=== PATIENT | male | born 1950 | race Caucasian/White ===

== ENCOUNTER 2016-08-05 18:05 | Observation (INO) | payer MEDICARE, OTHER ==
[2016-08-05 20:10] LABS: ABSOLUTE EOSINOPHILS # (AUTO) 0.4 10^3/uL (0.0-0.6); ABSOLUTE LYMPHOCYTES (AUTO) 1.8 10^3/uL (0.5-4.7); ABSOLUTE MONOCYTES (AUTO) 0.6 10^3/uL (0.1-1.4); ABSOLUTE NEUT (AUTO) 4.4 10^3/uL (1.7-8.2); BASOPHILS % (AUTO) 0.6 % (0-2); EOSINOPHILS % (AUTO) 5.6 % (0-6); HEMOGLOBIN 11.9 g/dL (13.5-17.0); HGB HCT DIFFERENCE 0.7; LYMPHOCYTES % (AUTO) 25.4 % (13-45); MEAN CORPUSCULAR HEMOGLOBIN 30.5 pg (27.0-33.4); MEAN CORPUSCULAR HGB CONC 34.1 g/dL (32.0-36.0); MEAN CORPUSCULAR VOLUME 89 fl (80-97); MONOCYTES % (AUTO) 7.6 % (3-13); RED BLOOD COUNT 3.92 10^6/uL (4.35-5.55); RED CELL DISTRIBUTION WIDTH 13.9 % (11.5-14.0); SEGMENTED NEUTROPHILS % (AUTO) 60.8 % (42-78); WHITE BLOOD COUNT 7.3 10^3/uL (4.0-10.5)
[2016-08-05 20:19] LABS: ALANINE AMINOTRANSFERASE 39 U/L (21-72); ALBUMIN 3.9 g/dL (3.5-5.0); ALKALINE PHOSPHATASE 102 U/L (38-126); ANION GAP 10 (5-19); ASPARTATE AMINO TRANSFERASE 19 U/L (17-59); BILIRUBIN,TOTAL 0.5 mg/dL (0.2-1.3); BLOOD UREA NITROGEN 22 mg/dL (7-20); CALCIUM 9.2 mg/dL (8.4-10.2); CARBON DIOXIDE 29 mmol/L (22-30); CHLORIDE 97 mmol/L (98-107); CREATINE KINASE < 20 U/L (55-170); CREATININE RESULT 0.84 mg/dL (0.52-1.25); GLUCOSE 149 mg/dL (75-110); POTASSIUM 4.5 mmol/L (3.6-5.0); SODIUM 136.2 mmol/L (137-145); TOTAL PROTEIN 6.7 g/dL (6.3-8.2)
[2016-08-05 20:31] LABS: TROPONIN I < 0.012 ng/mL
[2016-08-05] MEDS ORDERED: ONDANSETRON 4 MG TAB.RAPDIS PO ONE (21:00)
[2016-08-05] MEDS ORDERED: FAMOTIDINE 20 MG TABLET PO ONE (21:00)
--- NOTE | 2016-08-05 21:02 | ER Document Report ---
ED Cardiac - General Chief Complaint: Chest Pain Stated Complaint: CHEST PAIN Time seen by provider: 21:01 Notes: Patient is a 66-year-old male that comes emergency department for chief complaint of chest pain, symptoms started at 6 PM when he awoke from a nap, he states he felt nauseated and felt slightly lightheaded with pain in his left sternal border and slightly of the upper abdomen. He states that he felt similar symptoms this morning but this resolved with breakfast. Patient has never had a heart attack but did have a negative cardiac catheterization over 2 years ago in [place], he has a dual pacer, history of atrial fibrillation and DVT, on Xarelto. Patient denies shortness of breath, patient took 2 sublingual nitroglycerin at home before coming by EMS, was given 324 past and by EMS, he states he feels much better and is almost completely out of pain. Other past medical history includes type II diabetes, on oral medication, PVD. Patient does not have a lot associate. TRAVEL OUTSIDE OF THE [place] IN LAST 30 DAYS: No - Related Data Allergies/Adverse Reactions: Penicillins Allergy (Intermediate, Verified 08/05/16 19:14) latex Allergy (Mild, Verified 08/05/16 19:14) procaine [From Novocain] Allergy (Verified 08/05/16 19:14) silicone Allergy (Verified 08/05/16 19:14) Past Medical History - General Information source: Patient - Social History Smoking Status: Never Smoker Frequency of alcohol use: None Drug Abuse: None Lives with: Family Family History: Reviewed & Not Pertinent - Past Medical History Cardiac Medical History: Reports: Hx Atrial Fibrillation, Hx Congestive Heart Failure, Hx DVT, Hx Hypercholesterolemia, Hx Hypertension Denies: Hx Heart Attack, Hx Pulmonary Embolism Pulmonary Medical History: Reports: Hx Sleep Apnea Neurological Medical History: Denies: Hx Seizures Endocrine Medical History: Reports: Hx Diabetes Mellitus Type 2, Hx Hypothyroidism GI Medical History: Reports: Hx Hepatitis - History of hepatitis A. Musculoskeltal Medical History: Reports Hx Arthritis Psychiatric Medical History: Reports: Hx Bipolar Disorder, Hx Depression Infectious Medical History: Reports: Hx Hepatitis - History of hepatitis A. Past Surgical History: Reports: Hx Pacemaker, Hx Thyroid Surgery - Immunizations Hx Pneumococcal Vaccination: 02/23/16 Review of Systems - Review of Systems Constitutional: No symptoms reported EENT: No symptoms reported Cardiovascular: See HPI Respiratory: No symptoms reported Gastrointestinal: See HPI Genitourinary: No symptoms reported Male Genitourinary: No symptoms reported Musculoskeletal: No symptoms reported Skin: No symptoms reported Hematologic/Lymphatic: No symptoms reported Neurological/Psychological: No symptoms reported Physical Exam - Vital signs Vitals: Temp Pulse Resp BP 97.9 F 61 16 126/62 H 08/05/16 18:17 08/05/16 18:17 08/05/16 18:17 08/05/16 18:17 Interpretation: Normal - General General appearance: Appears well, Alert In distress: None - HEENT Head: Normocephalic, Atraumatic Eyes: Normal Conjunctiva: Normal Extraocular movements intact: Yes Pupils: PERRL Nasal: Normal Mouth/Lips: Normal Mucous membranes: Normal Pharynx: Normal Neck: Normal - Respiratory Respiratory status: No respiratory distress Chest status: Nontender. No: Tender Breath sounds: Normal. No: Decreased air movement, Nonproductive cough, Wheezing Chest palpation: Normal - Cardiovascular Rhythm: Regular. No: Tachycardia Heart sounds: Normal auscultation, S1 appreciated, S2 appreciated Murmur: No - Abdominal Inspection: Normal Distension: No distension Bowel sounds: Normal Tenderness: Tender - Very mild upper abdominal tenderness, otherwise soft and benign Organomegaly: No organomegaly - Back Back: Normal, Nontender - Extremities General upper extremity: Normal inspection, Nontender, Normal color, Normal ROM , Normal temperature General lower extremity: Normal inspection, Nontender, Normal color, Normal ROM , Normal temperature, Normal weight bearing. No: Analia's sign - Neurological Neuro grossly intact: Yes Cognition: Normal Orientation: AAOx4 Juan Coma Scale Eye Opening: Spontaneous [place] Coma Scale Verbal: Oriented [place] Coma Scale Motor: Obeys Commands [place] Coma Scale Total: 15 Speech: Normal Motor strength normal: LUE, RUE, LLE, RLE Sensory: Normal - Psychological Associated symptoms: Normal affect, Normal mood - Skin Skin Temperature: Warm Skin Moisture: Dry Skin Color: Normal Skin irregularity: other - Gynecomastia Course - Re-evaluation Re-evalutation: EKG paced rhythm with no significant change from prior. No overt abnormality on chest x-ray. Lungs clear on exam. CBC, chemistry nonspecific, cardiac enzymes negative. On examination patient complaining of mild discomfort, after Zofran and Pepcid symptoms completely resolved. Discussed with Dr. Polanczyk per [facility] guidelines. Because of patient's age and comorbidities, discussed with Dr. Schmidt. Recommends repeat enzyme and possible discharge home if normal. Cardiac enzymes again negative, discussed with patient, discussed negative workup, dental follow-up plans. Patient states he is uncomfortable going home despite his workup. Discussed again with Dr. Schmidt, patient will be admitted to telemetry observation. - Vital Signs Vital signs: Temp Pulse Resp BP Pulse Ox 98.6 F 62 17 129/72 H 96 08/06/16 04:54 08/06/16 05:00 08/06/16 04:54 08/06/16 04:54 08/06/16 04:54 - Laboratory Result Diagrams: 08/05/16 19:40 08/05/16 19:40 Laboratory results interpreted by me: 08/05/16 08/05/16 19:40 19:40 RBC 3.92 L Hgb 11.9 L Hct 35.0 L Sodium 136.2 L Chloride 97 L BUN 22 H Glucose 149 H Creatine Kinase < 20 L Discharge - Discharge Clinical Impression: Chest pain Disposition: ADMITTED OBSERVATION Admitting Provider: Roxana Unit Admitted: Telemetry
--- NOTE | 2016-08-05 21:41 | EKG REPORT ---
SEVERITY:- ABNORMAL ECG - ATRIAL-VENTRICULAR DUAL-PACED COMPLEXES : Confirmed by: Deniz Baugh MD 05-Aug-2016 21:40:26
[2016-08-06] MEDS ORDERED: NITROGLYCERIN 0.4 MG/TAB 25 TAB/BOTTLE SL PRN (05:07)
[2016-08-06 07:33] LABS: CREATINE KINASE MB < 0.22 ng/mL (<4.55); TROPONIN I < 0.012 ng/mL
--- NOTE | 2016-08-06 08:24 | EKG REPORT ---
SEVERITY:- ABNORMAL ECG - ATRIAL-VENTRICULAR DUAL-PACED RHYTHM : Confirmed by: Angel Henson 06-Aug-2016 08:23:19
--- NOTE | 2016-08-06 08:31 | PDOC H&P ---
History of Present Illness Admission Date/PCP: 08/06/16 05:07 CORRY DUARTE MD Patient complains of: chest pain History of Present Illness: CORRY KATZ is a 66 year old male with afib and hypertension since 1979. 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 In february he had a thrombotic stroke numbness on the right. He was placed on xarelto. Echo showed mild MR AR Lvh & Pht. He has 3 caths and 3 ablations. The last cath was 2y ago. In 2002 he had R dvt. Last month Dr Roper scheduled arterial & venous angiograms for R pad and venous ulcer. Since yesterday at 3pm he has had L parasternal ache 2of5 radiating to neck & left arm not associated with exertion, breathing or meals. Mi was rulled out but he insisted on staying. Only other chest pains have been only seconds. Past Medical History Cardiac Medical History: Reports: Atrial Fibrillation, Congestive Heart Failure - presumably from MR GEREMIAS since ejection and E/A were normal, DVT, Hyperlipidema, Hypertension, Peripheral Vascular Disease Denies: Myocardial Infarction, Pulmonary Embolism Pulmonary Medical History: Reports: Bronchitis, Sleep Apnea EENT Medical History: Reports: None Neurological Medical History: Reports: Hemorrhagic CVA, Ischemic CVA Denies: Seizures Endocrine Medical History: Reports: Diabetes Mellitus Type 2, Hypothyroidism, Other - diabetic neuropathy Renal/ Medical History: Reports: Nephrolithiasis Malignancy Medical History: Reports: None GI Medical History: Reports: Gastroesophageal Reflux Disease, Hepatitis - History of hepatitis A., Peptic Ulcer Disease Musculoskeltal Medical History: Reports: Arthritis Skin Medical History: Reports: Other - R cellulitis *4. Last 2m ago when admitted Psychiatric Medical History: Reports: Bipolar Disorder Infectious Medical History: Reports: Other - hepatitis A Past Surgical History Past Surgical History: Reports: Appendectomy, Orthopedic Surgery - 21 operations L hand including orif 234fingers and amputation L 3rd finger., Pacemaker, Other - orif R femur,tibia Social History Information Source: Dr. Arthur Lives with: Family Smoking Status: Never Smoker Frequency of Alcohol Use: None Hx Recreational Drug Use: No Hx Prescription Drug Abuse: No - Advance Directive Resuscitation Status: Full Code Family History Family History: CAD, DM, Hypertension Parental Family History Reviewed: Yes Children Family History Reviewed: Yes Sibling(s) Family History Reviewed.: Yes Medication/Allergy Allergies/Adverse Reactions: Penicillins Allergy (Intermediate, Verified 08/05/16 19:14) latex Allergy (Mild, Verified 08/05/16 19:14) procaine [From Novocain] Allergy (Verified 08/05/16 19:14) silicone Allergy (Verified 08/05/16 19:14) Review of Systems Constitutional: PRESENT: weight loss - 21# in 1m. ABSENT: fever(s), headache(s) Cardiovascular: PRESENT: chest pain, dyspnea on exertion, orthropnea - 2 pillows Respiratory: PRESENT: dyspnea. ABSENT: cough Gastrointestinal: ABSENT: abdominal pain, constipation, diarrhea, hematochezia, melena, vomiting Genitourinary: PRESENT: dysuria. ABSENT: hematuria Integumentary: PRESENT: lesions - R venous leg ulcer Neurological: PRESENT: paresthesias - feet Psychiatric: PRESENT: depression Physical Exam Vital Signs: Temp Pulse Resp BP Pulse Ox 98.6 F 62 17 129/72 H 96 08/06/16 04:54 08/06/16 05:00 08/06/16 04:54 08/06/16 04:54 08/06/16 04:54 Intake & Output 08/05/16 08/06/16 08/07/16 07:59 07:59 07:59 Intake Total 200 Balance 200 Weight 279 lb 12.266 oz General appearance: PRESENT: no acute distress Mouth exam: PRESENT: neck supple, tongue midline Neck exam: ABSENT: lymphadenopathy, thyromegaly Respiratory exam: PRESENT: clear to auscultation arline Cardiovascular exam: PRESENT: irregular rhythm. ABSENT: diastolic murmur, systolic murmur GI/Abdominal exam: ABSENT: mass, organolmegaly, tenderness Extremities exam: ABSENT: pedal edema Neurological exam: PRESENT: oriented to situation Psychiatric exam: PRESENT: anxious, depressed Results Laboratory Results: 08/06/16 06:18 CK-MB (CK-2) < 0.22 Troponin I < 0.012 EKG Comments: Abnormal - 24 hr 08/05/16 08/05/16 19:40 19:40 RBC 3.92 L Hgb 11.9 L Hct 35.0 L Sodium 136.2 L Chloride 97 L BUN 22 H Glucose 149 H Creatine Kinase < 20 L Impressions: Chest X-Ray 08/05/16 18:12 IMPRESSION: MILD CARDIAC ENLARGEMENT WITH BORDERLINE VASCULAR PROMINENCE. Assessment & Plan - Diagnosis (1) Chest pain Qualifiers: Chest pain type: precordial pain Qualified Code(s): R07.2 - Precordial pain Is this a current diagnosis for this admission?: YesPlan: more enzymes,ekgs. Consult Dr Marrero. Continue xarelto. Add aspirin
[2016-08-06] MEDS: FUROSEMIDE 40 MG TABLET PO SCH ×2 (09:56→17:10)
[2016-08-06] MEDS: TAMSULOSIN HCL 0.4 MG CAP.SR.24H PO SCH ×2 (09:57→21:37)
[2016-08-06] MEDS: DOCUSATE SODIUM 100 MG CAPSULE PO SCH ×2 (09:57→17:10)
[2016-08-06] MEDS: ATORVASTATIN CALCIUM 40 MG TABLET PO SCH (09:58)
[2016-08-06] MEDS: FAMOTIDINE 20 MG TABLET PO SCH ×2 (09:58→21:37)
[2016-08-06] MEDS: ASPIRIN 81 MG TABLET, CHEWABLE PO SCH (09:58)
[2016-08-06] MEDS: ARIPIPRAZOLE 5 MG TABLET PO SCH (09:58)
[2016-08-06] MEDS: LEVOTHYROXINE SODIUM 0.15 MG TABLET PO SCH (09:58)
[2016-08-06] MEDS: GLIPIZIDE 5 MG TABLET PO SCH ×2 (09:59→15:52)
[2016-08-06] MEDS: CARBAMAZEPINE 200 MG TABLET PO SCH ×2 (09:59→21:36)
[2016-08-06] MEDS ORDERED: GLIPIZIDE 5 MG TABLET PO SCH (10:00)
[2016-08-06 12:11] LABS: CREATINE KINASE MB < 0.22 ng/mL (<4.55); TROPONIN I < 0.012 ng/mL
[2016-08-06] MEDS: RIVAROXABAN 10 MG TABLET PO SCH (17:13)
[2016-08-06 18:01] LABS: CREATINE KINASE MB < 0.22 ng/mL (<4.55); TROPONIN I < 0.012 ng/mL
--- NOTE | 2016-08-06 20:39 | PDOC CONSULTATION ---
[id number] pain History of Present Illness Admission Date/PCP: 08/06/16 05:07 CORRY DUARTE MD Patient complains of: Chest pain History of Present Illness: CORRY KATZ is a 66 year old male with afib and hypertension since 1979. 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 In february he had a thrombotic stroke numbness on the right. He was placed on xarelto. Echo showed mild MR GEREMIAS Lvh & Pht. He has 3 caths and 3 ablations. The last cath was 2y ago. In 2002 he had R dvt. Last month Dr Roper scheduled arterial & venous angiograms for R pad and venous ulcer. Since yesterday at 3pm he has had L parasternal ache 2/5 radiating to neck & left arm not associated with exertion, breathing or meals. Mi was rulled out but he insisted on staying. Only other chest pains have been only seconds. Patient denied any exertional component to it. There are no significant associated symptoms. Patient claims last heart catheterization was 2 years ago and was negative. Past Medical History Cardiac Medical History: Reports: Atrial Fibrillation, Congestive Heart Failure - presumably from MR GEREMIAS since ejection and E/A were normal, DVT, Hyperlipidema, Hypertension, Peripheral Vascular Disease Denies: Myocardial Infarction, Pulmonary Embolism Pulmonary Medical History: Reports: Bronchitis, Sleep Apnea EENT Medical History: Reports: None Neurological Medical History: Reports: Hemorrhagic CVA, Ischemic CVA Denies: Seizures Endocrine Medical History: Reports: Diabetes Mellitus Type 2, Hypothyroidism, Other - diabetic neuropathy Renal/ Medical History: Reports: Nephrolithiasis Malignancy Medical History: Reports: None GI Medical History: Reports: Gastroesophageal Reflux Disease, Hepatitis - History of hepatitis A., Peptic Ulcer Disease Musculoskeltal Medical History: Reports: Arthritis Skin Medical History: Reports: Other - R cellulitis *4. Last 2m ago when admitted Psychiatric Medical History: Reports: Bipolar Disorder, Depression Infectious Medical History: Reports: Other - hepatitis A Past Surgical History Past Surgical History: Reports: Appendectomy, Orthopedic Surgery - 21 operations L hand including orif 234fingers and amputation L 3rd finger., Pacemaker, Other - orif R femur,tibia Social History Information Source: Patient Lives with: Family Smoking Status: Never Smoker Frequency of Alcohol Use: None Hx Recreational Drug Use: No Hx Prescription Drug Abuse: No - Advance Directive Resuscitation Status: Full Code Family History Family History: CAD, DM, Hypertension Parental Family History Reviewed: Yes Children Family History Reviewed: Yes Sibling(s) Family History Reviewed.: Yes - Positive for CAD but not premature. Medication/Allergy Home Medications: Aripiprazole [Abilify 2 mg Tablet] 2 mg PO QHS 08/06/16 Aripiprazole [Abilify 5 mg Tablet] 5 mg PO QAM 08/06/16 Aspirin [Aspirin EC] 81 mg PO DAILY 08/06/16 Atorvastatin Calcium [Lipitor 40 mg Tablet] 40 mg PO DAILY 08/06/16 Bupropion HCl [Bupropion HCl Sr] 150 mg PO [id number] 08/06/16 Carbamazepine [Tegretol 200 mg Tablet] 200 mg PO BID 08/06/16 Citalopram Hydrobromide [Celexa 40 mg Tablet] 40 mg PO QAM 08/06/16 Colestipol HCl [Colestid 1 gm Tablet] 1 gm PO BID 08/06/16 Docusate Sodium [Colace 100 mg Capsule] 100 mg PO BID 08/06/16 Ergocalciferol (Vitamin D2) [Drisdol 50,000 unit (1.25MG) Capsule] 50,000 unit PO FERRIS@1000 08/06/16 Furosemide [Lasix] 40 mg PO BIDBL 08/06/16 Gabapentin [Neurontin] 800 mg PO TID 08/06/16 Glipizide [Glucotrol 5 mg Tablet] 5 mg PO BIDACBS 08/06/16 Levothyroxine Sodium [Synthroid 0.15 mg Tablet] 0.15 mg PO DAILY 08/06/16 Lisinopril [Prinivil 2.5 mg Tablet] 2.5 mg PO DAILY 08/06/16 Metformin HCl [Glucophage] 500 mg PO BID 08/06/16 Metoprolol Tartrate [Lopressor 25 mg Tablet] 25 mg PO Q12 08/06/16 Omeprazole 40 mg PO ACBRKFST 08/06/16 Potassium Chloride [K-Tab ER] 40 meq PO BID 08/06/16 Rivaroxaban [Xarelto] 20 mg PO DAILY 08/06/16 Spironolactone [Aldactone] 50 mg PO DAILY 08/06/16 Tamsulosin HCl [Flomax 0.4 mg Cap.sr] 0.4 mg PO Q12 08/06/16 Allergies/Adverse Reactions: Penicillins Allergy (Intermediate, Verified 08/05/16 19:14) latex Allergy (Mild, Verified 08/05/16 19:14) procaine [From Novocain] Allergy (Verified 08/05/16 19:14) silicone Allergy (Verified 08/05/16 19:14) Review of Systems Review of Systems: Please see history of present illness and past medical history as wall. Constitutional: No fever or chills reported. Head : No recent chronic headaches, recent head injury. Eyes: No recent eye pain, diplopia, redness, discharge, acute visual changes. Ears: No recent chronic ear pain, acute hearing loss, ear discharge. Oral cavity: No recent ulcerations, bleeding, oral cavity discomfort. Neck: No recent acute neck pain reported. Hematologic: No recent easy bruising or bleeding or hematologic malignancy reported. Lymphatic: No recent lymphatic malignancy, chronic lymphadenopathy reported yet Cardiovascular system review: See history of present illness. Respiratory system review: No recent chronic cough, hemoptysis, blood clots in the lungs reported. Mild Shortness of breath on exertion Gastrointestinal system review: Negative for any recent acute or chronic abdominal pain, hematemesis, melena, recent change in bowel habits. Genitourinary system review: No recent acute or chronic hematuria, flank pain, UTI etc. reported. Skin system review: Negative for any recent abnormal bruising, no rash, no pruritus reported. Neurologic: History of prior stroke but no seizures. Psychologic: No history of major psychosis or depression reported. Musculoskeletal: Minor aches and pains reported. No acute joint swelling reported. Endocrine: No recent polyuria, polydipsia, recent heat or cold intolerance. Physical Exam Vital Signs: Temp Pulse Resp BP Pulse Ox 97.7 F 66 17 121/66 97 08/06/16 19:48 08/06/16 19:48 08/06/16 19:48 08/06/16 19:48 08/06/16 19:48 Intake & Output 08/05/16 08/06/16 08/07/16 06:59 06:59 06:59 Intake Total 200 1270 Output Total 2250 Balance 200 -980 Weight 126.9 kg Exam: GENERAL: well-nourished and in no acute distress. Alert and oriented x3 HEAD: Atraumatic, normocephalic. EYES: Pupils equal round and reactive to light, extraocular movements intact, sclera anicteric, conjunctiva are normal. ENT: TMs normal, nares patent, oropharynx clear without exudates. Moist mucous membranes. No oral ulcerations or bleeding gums noted NECK: supple without lymphadenopathy. Trachea is central. No cervical or axillary lymphadenopathy noted. Carotids are 2+, JVD WNL LUNGS: Respiration seems nonlabored, no significant accessory muscle action noted. Breath sounds clear to auscultation bilaterally and equal noted. No wheezes rales or rhonchi noted. No significant dullness noted on percussion. CHEST: Palpation of the chest wall shows no significant chest wall tenderness. No other significant abnormalities noted. 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 ABDOMEN: Soft, no significant tenderness appreciated, normoactive bowel sounds. No guarding, no rebound. No rigidity noted . No masses appreciated. EXTREMITIES: Pedal pulses are 1-2+, no calf tenderness noted. No clubbing or cyanosis.trace to 1+ pedal edema noted. Left middle finger is amputated because of injury. NEUROLOGICAL: Focused neurological exam showed no significant neurologic deficit. Normal speech, full neurological exam not performed but patient able to move all 4 extremities. No facial asymmetry noted. PSYCH: Normal mood, normal affect. Judgment and insight within normal limits. SKIN: No significant ecchymosis, chronic dermatitis changes noted in the lower extremities with some ulceration.. MUSCULOSKELETAL EXAM: No significant joint swelling noted. Results Laboratory Results: 08/06/16 08/06/16 08/06/16 06:18 11:34 17:10 CK-MB (CK-2) < 0.22 < 0.22 < 0.22 Troponin I < 0.012 < 0.012 < 0.012 EKG Comments: A-V paced rhythm noted Impressions: Chest X-Ray 08/05/16 18:12 IMPRESSION: MILD CARDIAC ENLARGEMENT WITH BORDERLINE VASCULAR PROMINENCE. Assessment & Plan - Diagnosis (1) Chest pain Qualifiers: Chest pain type: precordial pain Qualified Code(s): R07.2 - Precordial pain Is this a current diagnosis for this admission?: Yes (2) Atrial fibrillation Qualifiers: Atrial fibrillation type: paroxysmal Qualified Code(s): I48.0 - Paroxysmal atrial fibrillation Is this a current diagnosis for this admission?: Yes (3) Hyperlipidemia Qualifiers: Hyperlipidemia type: unspecified Qualified Code(s): E78.5 - Hyperlipidemia, unspecified Is this a current diagnosis for this admission?: Yes (4) Hypertension Qualifiers: Hypertension type: essential hypertension Qualified Code(s): I10 - Essential (primary) hypertension Is this a current diagnosis for this admission?: Yes (5) Peripheral vascular disease Is this a current diagnosis for this admission?: Yes (6) Diabetes Qualifiers: Diabetes mellitus type: type 2 Diabetes mellitus complication status: with unspecified complications Diabetes mellitus middle or intermediate school principal insulin use: unspecified middle or intermediate school principal insulin use status Qualified Code(s): E11.8 - Type 2 diabetes mellitus with unspecified complications; Z79.4 - laborer [employer] (current) use of insulin Is this a current diagnosis for this admission?: Yes - Notes Notes: Chest pain: Patient has significant risk factors. There is intermediate to high probability that patient has significant CAD. I do not have heart catheter report available. However I feel that patient will benefit from a nuclear stress test. This will be scheduled. Atrial fibrillation: Patient currently in a paced V paced rhythm with nice P waves. Continue his Xarelto. Dyslipidemia: LDL goal is less than 70. Hypertension: Blood pressure goal is 135/85 or less. NIVIA inhibitor and beta blockers preferred. PVD: Patient Currently seeing vascular surgeon. Diabetes: Patient being well managed by PMD. - Time Time Spent: 30 to 50 Minutes - CODE STATUS was discussed, patient remains full code. Surrogate decision-maker patient's spouse. Multiple medical problems were addressed.More than 50% of the time spent coordinating care, discussing management plans with involved caregivers. Management plans discussed with involved personnels. Medical decision making was of moderate complexity.
[2016-08-06] MEDS: ARIPIPRAZOLE 2 MG TABLET PO SCH (21:36)
--- NOTE | 2016-08-07 08:18 | PDOC PROGRESS REPORT ---
Subjective Progress Note for:: 08/07/16 Subjective:: still mild L parasteral pain. Feels better with pressure application. Physical Exam Vital Signs: Temp Pulse Resp BP Pulse Ox 98.3 F 61 16 130/62 H 99 08/07/16 03:55 08/07/16 03:55 08/07/16 03:55 08/07/16 03:55 08/07/16 03:55 Intake & Output 08/06/16 08/07/16 08/08/16 07:59 07:59 07:59 Intake Total 200 1860 Output Total 4300 Balance 200 -2440 Weight 279 lb 12.266 oz 278 lb 3.574 oz General appearance: PRESENT: no acute distress Respiratory exam: PRESENT: clear to auscultation arline. ABSENT: chest wall tenderness Cardiovascular exam: ABSENT: diastolic murmur, irregular rhythm, systolic murmur GI/Abdominal exam: ABSENT: mass, organolmegaly, tenderness Extremities exam: ABSENT: pedal edema Results Laboratory Results: 08/06/16 08/06/16 08/06/16 06:18 11:34 17:10 CK-MB (CK-2) < 0.22 < 0.22 < 0.22 Troponin I < 0.012 < 0.012 < 0.012 Impressions: Chest X-Ray 08/05/16 18:12 IMPRESSION: MILD CARDIAC ENLARGEMENT WITH BORDERLINE VASCULAR PROMINENCE. Assessment & Plan - Diagnosis (1) Chest pain Qualifiers: Chest pain type: precordial pain Qualified Code(s): R07.2 - Precordial pain Is this a current diagnosis for this admission?: YesPlan: mi ruled out. Nuc pending
[2016-08-07] MEDS: GLIPIZIDE 5 MG TABLET PO SCH ×2 (08:20→16:57)
[2016-08-07] MEDS: ACETAMINOPHEN 325 MG TABLET PO PRN ×2 (10:52→15:26)
[2016-08-07] MEDS: ARIPIPRAZOLE 5 MG TABLET PO SCH (12:39)
[2016-08-07] MEDS: ASPIRIN 81 MG TABLET, CHEWABLE PO SCH (12:40)
[2016-08-07] MEDS: ATORVASTATIN CALCIUM 40 MG TABLET PO SCH (12:40)
[2016-08-07] MEDS: FUROSEMIDE 40 MG TABLET PO SCH ×2 (12:41→17:04)
[2016-08-07] MEDS: TAMSULOSIN HCL 0.4 MG CAP.SR.24H PO SCH ×2 (12:41→22:04)
[2016-08-07] MEDS: LEVOTHYROXINE SODIUM 0.15 MG TABLET PO SCH (12:42)
[2016-08-07] MEDS: FAMOTIDINE 20 MG TABLET PO SCH ×2 (12:42→22:04)
[2016-08-07] MEDS: DOCUSATE SODIUM 100 MG CAPSULE PO SCH ×2 (12:43→17:03)
[2016-08-07] MEDS: CARBAMAZEPINE 200 MG TABLET PO SCH ×2 (12:51→22:04)
[2016-08-07] MEDS ORDERED: REGADENOSON INJ 0.4 MG/5 ML DISP.SYRIN IV ONE (13:07)
--- NOTE | 2016-08-07 13:14 | DRAGON STRESS TEST REPORT ---
INTRAVENOUS LEXISCAN CARDIOLITE STRESS TEST USING SINGLE PHOTON EMMISION COMPUTERIZED TOMOGRAPHIC. DATE OF PROCEDURE: August 07, 2016 INDICATION : Chest pain CARDIAC RISK FACTORS: DTs, dyslipidemia RESTING EKG: AV paced rhythm STRESS EKG: No significant changes noted with LexiScan bolus REASON FOR TERMINATION: Protocol. PROCEDURE REPORT: Baseline heart rate 68 beats per minute with blood pressure of 131/74. Patient had no significant complaints. Heart rate at 2 minutes post bolus 90 with a blood pressure of 133/46. 3 minutes post bolus heart rate 84 with blood pressure of 130/51. No significant EKG changes were noted. Patient had no significant complaints during the procedure or postprocedure. CONCLUSIONS: Normal EKG and hemodynamic response to IV LexiScan. NUCLEAR DATA: At rest the patient was given 15.79 millicuries of technetium 99 sestamibi injected intravenously. As per protocol rest gated SPECT images were obtained. Subsequently the patient was given intravenous LexiScan at a dose of 0.4 mg in 5 mL intravenously, followed by flush with normal saline. Subsequently the stress dose of 45.2 millicuries of technetium 99 sestamibi was injected intravenously. As per protocol stress gated images were obtained. NUCLEAR INTERPRETATION: Both raw and processed data were used for interpretation. Visual, qualitative, computer-generated quantitative data was used. There was good myocardial uptake of technetium compound. Motion artifact and soft tissue attenuations were noted. Increased visceral uptake was noted. No definitive areas of transient perfusion defect noted. No definitive areas of fixed perfusion defect or scars noted, except for a small area of the distal anterior septum which is felt to be related to ventricular paced beats. EKG gated imaging showed LV EF at 47 %, rest and stress gated EF similar visually. T. I D. ratio was 1.09. Lung heart ratio noted to be within normal limits 0.43. No significant extracardiac and abnormal radiotracer activities were noted. RV free wall uptake was noted to be increased borderline. IMPRESSION: Also refer to comments under nuclear interpretation. Also test results needs to be interpreted in the context of pretest probability. 1. There is no definitive scintigraphic evidence of LexiScan induced myocardial ischemia. 2. There is no definitive scintigraphic evidence of myocardial infarction/scar. 3. EKG gated imaging shows left ejection fraction of approximately 47 %. 4. Clinical correlation requested as occasionally single vessel disease or balanced ischemia could be missed. In approximately 10% of the cases Lexiscan may not cause adequate vasodilatory stress. RECOMMENDATIONS: Aggressive risk factor modification, medical therapy. Clinical correlation with echocardiogram derived ejection fraction. Inability to exercise by itself can lead to increased cardiovascular event risks. Consider cardiology consultation if clinically indicated. I AM AVAILABLE FOR CARDIOLOGY CONSULTATION AND FOLLOWUP IF REQUESTED BY PMD Angel Henson M.D., [facility] [employer] Announcer sustainable design coordinator, Board certified in cardiovascular diseases, Nuclear cardiology, Echocardiography Cardiac CT and cardiac MRI Ph. [phone] [facility]
--- NOTE | 2016-08-07 13:52 | Physician Advisory Note ---
Physician Advisor ProgressNote .: Pursuant to the plan for [facility], I have reviewed the medical record for this patient. Physician Advisor Statement: Possible documentation opportunities if attending agrees: 1. "CP, likely due to ____" [need to specify likely dx; "noncardiac",for example, is not sufficiently specific] 2. "chronic anemia, suspect due to ____" [chronic blood loss Fe defic? chronic nutritional Fe/folate/B12 defic?] 3. "mild hyponatremia, likely due to intravascular volume depletion" [BUN 22, Cr 0.84] 4. "Paroxysmal Afib" (or "chronic Afib"?) - need to specify which type w/Afib As always, if concerned about any unstable VS or abnormal labs, please comment on them & note what doing about them, & please document each day the potential clinical problems you are concerned could occur if pt not kept in hospital for tx at this time. Discussion: 66yo male w/ chronic co-morbidities including HTN, chronic CHF felt likely valvular due to MR, JUSTIN, DM-2 w/neuropathy, ___ type Afib, dual chamber pacer, hemorrhagic CVA & later thrombotic CVA, PAD, RLE venous ulcer, bipolar d/o, hypothyroidism, ... - presented 2/12 PM to ED w/CP/radiation to neck, TRAMMELL, SOB, orthopnea, & 21# wt loss over 1mo - [Intentional, or ... ??, Is this something that concerns attending?] ED provider note also reported nausea, lightheadedness, improvement after 2 SL NTG at home, arrival via EMS. (+) AF VSS, irreg.ly irreg heart. Hgb 11.9, Na 136.2, BUN 22, Cr 0.84, CXR = mild CMG, cardiac enz.s neg. Attending ordered serial cardiac enzymes, cardiology consult, Xarelto, ASA, I/Os , daily wts, tele monitoring, CPAP/O2. Status: CP pts are most appropriate to come in as Outpt Obs until they prove need for transition to Inpt. This pt, by H&P's report of "[place] was r/o'd but he insisted on staying", sounded like keeping him a 2nd MN was for pt convenience/preference rather than clinical factors. Reading the ED provider record, this is what it sounds like, too. Nursing notes have continued to not mention any repeat CP or other new issues. However, per 2/14 AM's progress note, pt "still" having mild parasternal CP ( which improves with applying pressure to the area). Continued CP could certainly be a reason to keep pt in hospital for an extra night & do further cardiac testing, & grades 9 thru 12 visiting teacher has ordered stress test with repeat EKGs (in this pt who is AV paced). Pt has already spent 2 MNs in hospital care. Looking at severity of illness, this appears to be a variety of CP eval. Looking at intensity of service, it appears rather typical for CP Obs stay. Stress test is likely to determine what will now be planned, whether d/c or further testing/tx in hospital. Therefore, the overall assessment of this case is that Outpt Obs status remains appropriate. Thanks for your help with documentation accuracy/specificity improvement! Roxy Simmons MD [facility] Physician Advisor, Fellow of Hospital Medicine
[2016-08-07] MEDS: RIVAROXABAN 10 MG TABLET PO SCH (16:57)
[2016-08-07] MEDS: ARIPIPRAZOLE 2 MG TABLET PO SCH (22:04)
--- NOTE | 2016-08-07 23:16 | PDOC PROGRESS REPORT ---
Subjective Progress Note for:: 08/07/16 Subjective:: Patient seems to be doing better with gradual improvement. Pt is denying any chest arm or neck discomfort. Patient denying any PND, orthopnea. Patient denied any sustained palpitations, dizziness, syncope, near syncope. Patient denying any fever chills. Patient denying any other significant discomfort. Patient is maintaining AV paced rhythm. Review of systems: Rest review of systems negative. Medications: Medications have been reviewed. Nuclear stress test procedure was explained to the patient in detail. Risks benefits were discussed and informed consent was obtained. Alternatives were discussed. Patient informed that based on risk factors, physical exam, lab data findings and symptoms there is at least intermediate probability of underlying CAD. Nuclear stress test procedure was therefore scheduled. Physical Exam Vital Signs: Temp Pulse Resp BP Pulse Ox 97.4 F 59 L 16 113/59 L 95 08/07/16 19:56 08/07/16 19:56 08/07/16 19:56 08/07/16 19:56 08/07/16 19:56 Intake & Output 08/06/16 08/07/16 08/08/16 06:59 06:59 06:59 Intake Total 200 1860 1070 Output Total 4300 375 Balance 200 -2440 695 Weight 126.9 kg 126.2 kg Exam: GENERAL: well-nourished and in no acute distress. Alert and oriented x3 HEAD: Atraumatic, normocephalic. EYES: Pupils equal round and reactive to light, extraocular movements intact, sclera anicteric, conjunctiva are normal. ENT: TMs normal, nares patent, oropharynx clear without exudates. Moist mucous membranes. No oral ulcerations or bleeding gums noted NECK: supple without lymphadenopathy. Trachea is central. No cervical or axillary lymphadenopathy noted. Carotids are 2+, JVD WNL LUNGS: Respiration seems nonlabored, no significant accessory muscle action noted. Breath sounds clear to auscultation bilaterally and equal noted. No wheezes rales or rhonchi noted. No significant dullness noted on percussion. CHEST: Palpation of the chest wall shows no significant chest wall tenderness. No other significant abnormalities noted. HEART: Calcium MULTIMEDIA EDITOR, No PSH, 1/6 MARNIE aortic area, 1/6 dempsey systolic murmur mitral area, no rubs, no gallops. ABDOMEN: Soft, no significant tenderness appreciated, normoactive bowel sounds. No guarding, no rebound. No rigidity noted . No masses appreciated. EXTREMITIES: Pedal pulses are 1-2+, no calf tenderness noted. No clubbing or cyanosis.trace to 1+ pedal edema noted. Left middle finger is amputated because of injury. NEUROLOGICAL: Focused neurological exam showed no significant neurologic deficit. Normal speech, full neurological exam not performed but patient able to move all 4 extremities. No facial asymmetry noted. PSYCH: Normal mood, normal affect. Judgment and insight within normal limits. SKIN: No significant ecchymosis, chronic dermatitis changes noted in the lower extremities with some ulceration.. MUSCULOSKELETAL EXAM: No significant joint swelling noted. Results Laboratory Results: 08/06/16 08/06/16 08/06/16 06:18 11:34 17:10 CK-MB (CK-2) < 0.22 < 0.22 < 0.22 Troponin I < 0.012 < 0.012 < 0.012 EKG Comments: This morning's EKG showed AV paced rhythm. Impressions: Chest X-Ray 08/05/16 18:12 IMPRESSION: MILD CARDIAC ENLARGEMENT WITH BORDERLINE VASCULAR PROMINENCE. Assessment & Plan - Diagnosis (1) Chest pain Qualifiers: Chest pain type: precordial pain Qualified Code(s): R07.2 - Precordial pain Is this a current diagnosis for this admission?: Yes (2) Atrial fibrillation Qualifiers: Atrial fibrillation type: paroxysmal Qualified Code(s): I48.0 - Paroxysmal atrial fibrillation Is this a current diagnosis for this admission?: Yes (3) Hyperlipidemia Qualifiers: Hyperlipidemia type: unspecified Qualified Code(s): E78.5 - Hyperlipidemia, unspecified Is this a current diagnosis for this admission?: Yes (4) Hypertension Qualifiers: Hypertension type: essential hypertension Qualified Code(s): I10 - Essential (primary) hypertension Is this a current diagnosis for this admission?: Yes (5) Peripheral vascular disease Is this a current diagnosis for this admission?: Yes (6) Diabetes Qualifiers: Diabetes mellitus type: type 2 Diabetes mellitus complication status: with unspecified complications Diabetes mellitus rn long term care insulin use: unspecified custodial insulin use status Qualified Code(s): E11.8 - Type 2 diabetes mellitus with unspecified complications; Z79.4 - snf (current) use of insulin Is this a current diagnosis for this admission?: Yes - Notes Notes: Chest pain: Atypical. Nuclear stress test performed was negative for significant ischemia. Patient informed that occasionally single-vessel disease of branch vessel disease could be missed however at this point would recommend medical management. Further evaluation into alternative causes of chest pain such as with upper GI endoscopy etc. can be considered. At this point have recommended risk factor modification and medical management. Patient offered follow-up with glass cleaner of his choice. Atrial fibrillation: This evening patient was noted into atrial flutter fibrillation but he is however noted to be stable and tolerating it well. Patient has a history of it and is already on chronic anticoagulation. Dyslipidemia: Recommend statin therapy. Hypertension: Reasonably well controlled. Blood pressure goal in this patient is 135/85 or less. This was discussed with the patient. Currently blood pressure under reasonable control. Better medication for this patient are NIVIA inhibitor/ARB/beta nena etc. discussed side effects of uncontrolled hypertension and also severe hypotension. PVD: Currently stable Diabetes: Stable. Addendum: Later on nurses called me to tell me that patient has been in atrial flutter fibrillation. Patient is having underlying ventricular paced rhythm. He was noted to be stable. - Time Time with patient: Greater than 35 minutes - Patient was seen multiple times. Total time exceeds 40 minutes. In the morning nuclear stress test procedure, risks benefits, alternatives were discussed. Patient seen during the stress test. Patient also seen after stress test when results were discussed with the patient in detail. Patient's questions were answered. Nuclear stress test results were discussed with the patient. Patient was informed that no definitive evidence of pharmacologic stress-induced ischemia noted. No definite fixed defects were noted. Patient informed that occasionally significant single vessel disease or balanced ischemia could be missed. However based on the current study results, would recommend aggressive risk factor modification and medical therapy. It may also be worthwhile to consider evaluation or empiric management of other causes of chest pain. Should no other cause be found and if persistent in having chest pain, then cardiac catheterization should be considered. Right now, recommendations are for aggressive risk factor modification and medical management.
--- NOTE | 2016-08-07 23:58 | EKG REPORT ---
SEVERITY:- ABNORMAL ECG - A-V DUAL-PACED COMPLEXES W/ SOME INHIBITION : Confirmed by: Angel Henson 07-Aug-2016 23:58:14
--- NOTE | 2016-08-07 23:58 | EKG REPORT ---
SEVERITY:- ABNORMAL ECG - AFIB/FLUTTER AND VENTRICULAR-PACED RHYTHM : Confirmed by: Angel Henson 07-Aug-2016 23:57:59
[2016-08-08] MEDS ORDERED: ONDANSETRON 4 MG TAB.RAPDIS ONE (05:02)
[2016-08-08] MEDS ORDERED: ONDANSETRON 4 MG TAB.RAPDIS PO PRN (05:09)
--- NOTE | 2016-08-08 08:00 | PDOC DISCHARGE SUMMARY ---
General - Admit/Disc Date/PCP Admission Date/Primary Care Provider: 08/06/16 05:07 CORRY DUARTE MD Discharge Date: 08/08/16 - Discharge Diagnosis (1) Chest pain Is this a current diagnosis for this admission?: YesSummary: lauren normal x ej47. Pain stopped last pm. Dr Henson recommened medical management. - Additional Information Resuscitation Status: Full Code Discharge Diet: Cardiac, Diabetic Discharge Activity: Activity As Tolerated Home Medications: Aripiprazole [Abilify 2 mg Tablet] 2 mg PO QHS 08/06/16 Aripiprazole [Abilify 5 mg Tablet] 5 mg PO QAM 08/06/16 Aspirin [Aspirin EC] 81 mg PO DAILY 08/06/16 Atorvastatin Calcium [Lipitor 40 mg Tablet] 40 mg PO DAILY 08/06/16 Bupropion HCl [Bupropion HCl Sr] 150 mg PO PCBRKFST 08/06/16 Carbamazepine [Tegretol 200 mg Tablet] 200 mg PO BID 08/06/16 Citalopram Hydrobromide [Celexa 40 mg Tablet] 40 mg PO QAM 08/06/16 Colestipol HCl [Colestid 1 gm Tablet] 1 gm PO BID 08/06/16 Docusate Sodium [Colace 100 mg Capsule] 100 mg PO BID 08/06/16 Ergocalciferol (Vitamin D2) [Drisdol 50,000 unit (1.25MG) Capsule] 50,000 unit PO FERRIS@1000 08/06/16 Gabapentin [Neurontin] 800 mg PO TID 08/06/16 Glipizide [Glucotrol 5 mg Tablet] 5 mg PO BIDACBS 08/06/16 Levothyroxine Sodium [Synthroid 0.15 mg Tablet] 0.15 mg PO DAILY 08/06/16 Lisinopril [Prinivil 2.5 mg Tablet] 2.5 mg PO DAILY 08/06/16 Metformin HCl [Glucophage] 500 mg PO BID 08/06/16 Metoprolol Tartrate [Lopressor 25 mg Tablet] 25 mg PO Q12 08/06/16 Omeprazole 40 mg PO ACBRKFST 08/06/16 Potassium Chloride [K-Tab ER] 40 meq PO BID 08/06/16 Rivaroxaban [Xarelto] 20 mg PO DAILY 08/06/16 Spironolactone [Aldactone] 50 mg PO DAILY 08/06/16 Tamsulosin HCl [Flomax 0.4 mg Cap.sr] 0.4 mg PO Q12 08/06/16 Ondansetron [Zofran Odt 4 mg Tablet] 4 mg PO Q4HP PRN #10 tab.rapdis 08/08/16 History of Present Illness History of Present Illness: CORRY KATZ is a 66 year old male with afib and hypertension since 1979. 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 In february he had a thrombotic stroke numbness on the right. He was placed on xarelto. Echo showed mild MR AR Lvh & Pht. He has 3 caths and 3 ablations. The last cath was 2y ago. In 2002 he had R dvt. Last month Dr Roper scheduled arterial & venous angiograms for R pad and venous ulcer. Since yesterday at 3pm he has had L parasternal ache 2of5 radiating to neck & left arm not associated with exertion, breathing or meals. Mi was rulled out but he insisted on staying. Only other chest pains have been only seconds. This am vomited. Also nasal congestion & cough. Gave ondansetron. Wants home. Hospital Course Hospital Course: see above Physical Exam Vital Signs: Temp Pulse Resp BP Pulse Ox 97.5 F 65 17 96/53 L 98 08/08/16 03:59 08/08/16 03:59 08/08/16 03:59 08/08/16 03:59 08/08/16 03:59 Intake & Output 08/06/16 08/07/16 08/08/16 07:59 07:59 07:59 Intake Total 200 1860 2325 Output Total 4300 1250 Balance 200 -2440 1075 Weight 279 lb 12.266 oz 278 lb 3.574 oz 278 lb 3.574 oz General appearance: PRESENT: no acute distress Respiratory exam: PRESENT: clear to auscultation arline Cardiovascular exam: ABSENT: diastolic murmur, irregular rhythm, systolic murmur GI/Abdominal exam: ABSENT: mass, organolmegaly, tenderness Extremities exam: ABSENT: pedal edema Psychiatric exam: PRESENT: appropriate affect Results Laboratory Results: 08/06/16 08/06/16 08/06/16 06:18 11:34 17:10 CK-MB (CK-2) < 0.22 < 0.22 < 0.22 Troponin I < 0.012 < 0.012 < 0.012 Labs- Last Values WBC 7.3 10^3/uL (4.0-10.5) 08/05/16 19:40 RBC 3.92 10^6/uL (4.35-5.55) L 08/05/16 19:40 Hgb 11.9 g/dL (13.5-17.0) L 08/05/16 19:40 Hct 35.0 % (37.9-51.0) L 08/05/16 19:40 MCV 89 fl (80-97) 08/05/16 19:40 MCH 30.5 pg (27.0-33.4) 08/05/16 19:40 MCHC 34.1 g/dL (32.0-36.0) 08/05/16 19:40 RDW 13.9 % (11.5-14.0) 08/05/16 19:40 Plt Count 224 10^3/uL (150-450) 08/05/16 19:40 Seg Neutrophils % 60.8 % (42-78) 08/05/16 19:40 Lymphocytes % 25.4 % (13-45) 08/05/16 19:40 Monocytes % 7.6 % (3-13) 08/05/16 19:40 Eosinophils % 5.6 % (0-6) 08/05/16 19:40 Basophils % 0.6 % (0-2) 08/05/16 19:40 Absolute Neutrophils 4.4 10^3/uL (1.7-8.2) 08/05/16 19:40 Absolute Lymphocytes 1.8 10^3/uL (0.5-4.7) 08/05/16 19:40 Absolute Monocytes 0.6 10^3/uL (0.1-1.4) 08/05/16 19:40 Absolute Eosinophils 0.4 10^3/uL (0.0-0.6) 08/05/16 19:40 Absolute Basophils 0.0 10^3/uL (0.0-0.2) 08/05/16 19:40 Sodium 136.2 mmol/L (137-145) L 08/05/16 19:40 Potassium 4.5 mmol/L (3.6-5.0) 08/05/16 19:40 Chloride 97 mmol/L (98-107) L 08/05/16 19:40 Carbon Dioxide 29 mmol/L (22-30) 08/05/16 19:40 Anion Gap 10 (5-19) 08/05/16 19:40 BUN 22 mg/dL (7-20) H 08/05/16 19:40 Creatinine 0.84 mg/dL (0.52-1.25) 08/05/16 19:40 Est GFR ( Amer) > 60 (>60) 08/05/16 19:40 Est GFR (Non-Af Amer) > 60 (>60) 08/05/16 19:40 Glucose 149 mg/dL (75-110) H 08/05/16 19:40 Calcium 9.2 mg/dL (8.4-10.2) 08/05/16 19:40 Total Bilirubin 0.5 mg/dL (0.2-1.3) 08/05/16 19:40 Direct Bilirubin 0.0 mg/dL (0.0-0.3) 08/05/16 19:40 AST 19 U/L (17-59) 08/05/16 19:40 ALT 39 U/L (21-72) 08/05/16 19:40 Alkaline Phosphatase 102 U/L (38-126) 08/05/16 19:40 Creatine Kinase < 20 U/L (55-170) L 08/05/16 19:40 CK-MB (CK-2) < 0.22 ng/mL (<4.55) 08/06/16 17:10 Troponin I < 0.012 ng/mL 08/06/16 17:10 Total Protein 6.7 g/dL (6.3-8.2) 08/05/16 19:40 Albumin 3.9 g/dL (3.5-5.0) 08/05/16 19:40 Impressions: Chest X-Ray 08/05/16 18:12 IMPRESSION: MILD CARDIAC ENLARGEMENT WITH BORDERLINE VASCULAR PROMINENCE. Qualifiers PATEINT BEING DISCHARGED WITH ANY OF THE FOLLOWING DIAGNOSIS?: No Plan Discharge Plan: home. 1d ov
[2016-08-08 08:38] VITALS: BP 115/58
[2016-08-08] MEDS: GLIPIZIDE 5 MG TABLET PO SCH (08:42)
--- NOTE | 2016-08-08 09:44 | EKG REPORT ---
SEVERITY:- ABNORMAL ECG - AFIB/FLUTTER AND VENTRICULAR-PACED RHYTHM : Confirmed by: Angel Henson 08-Aug-2016 09:44:14
--- NOTE | 2016-08-09 12:18 | DISCHARGE SUMMARY E ---
Discharge Summary NAME: CORRY KATZ : 1950 AGE: 66Y ADMITTED: 08/06/2016 DISCHARGED: 08/08/2016 RESPONSE TO E REQUEST FOR CLARIFICATION OF THE FINAL DIAGNOSIS: Chest pain, MA ruled out, most probably from chest wall pain since we are treating the patient's GERD. DICTATING PHYSICIAN: CORRY DUARTE M.D. [id number] PHY#: [id number] [id number] JOB#: [id number] ACCT: [id number] cc:CORRY DUARTE M.D. >
== END 2016-08-08 09:16 | disposition home or self-care (01) ==
LOC: ER 18:05 → EH 08-06 01:51 → UNDOADMOB 08-06 01:51 → EH 08-06 04:53 → 5 08-06 04:53
PROVIDERS: ADMIT Family Medicine; ATTEND Family Medicine
DX: R07.2 Precordial pain (principal); K21.9 Gastro-esophageal reflux disease without esophagitis; I48.91 Unspecified atrial fibrillation; I12.9 Hypertensive chronic kidney disease with stage 1 through stage 4 chronic kidney disease, or unspecified chronic kidney disease; I50.9 Heart failure, unspecified; E11.9 Type 2 diabetes mellitus without complications; E03.9 Hypothyroidism, unspecified; E78.5 Hyperlipidemia, unspecified; I73.9 Peripheral vascular disease, unspecified; Z79.4 Long term (current) use of insulin; Z86.73 Personal history of transient ischemic attack (TIA), and cerebral infarction without residual deficits
CPT/HCPCS: 93005 ×4; 99285; 36415; 82553 ×2; 82550; 85025; 80053; 84484 ×2; 93017; 71010; 78452; 93010 ×4; G0378 ×3; A9500; J2785; A9270 ×26; J3490 ×3; Q9969; S0119

== ENCOUNTER 2016-09-18 12:45 | Emergency (ER) | payer MEDICARE, OTHER ==
--- NOTE | 2016-09-18 13:42 | ER Document Report ---
ED Medical Screen (RME) - General Stated Complaint: RIGHT FOOT PAIN Notes: Patient states he got up out of his chair last night and twisted his leg hearing a crack in either his ankle or his right foot. Patient ambulating on scene to get in EMS vehicle. I have greeted and performed a rapid initial assessment of this patient. A comprehensive ED assessment and evaluation of the patient, analysis of test results and completion of the medical decision making process will be conducted by additional ED providers. TRAVEL OUTSIDE OF THE [place] IN LAST 30 DAYS: No - Related Data Allergies/Adverse Reactions: Penicillins Allergy (Intermediate, Verified 08/05/16 19:14) latex Allergy (Mild, Verified 08/05/16 19:14) procaine [From Novocain] Allergy (Verified 08/05/16 19:14) silicone Allergy (Verified 08/05/16 19:14) Past Medical History - Past Medical History Cardiac Medical History: Reports: Hx Atrial Fibrillation, Hx Congestive Heart Failure - presumably from MR AR since ejection and E/A were normal, Hx DVT, Hx Hypercholesterolemia, Hx Hypertension, Hx Peripheral Vascular Disease Denies: Hx Heart Attack, Hx Pulmonary Embolism Pulmonary Medical History: Reports: Hx Bronchitis, Hx Sleep Apnea Neurological Medical History: Denies: Hx Seizures Endocrine Medical History: Reports: Hx Diabetes Mellitus Type 2, Hx Hypothyroidism GI Medical History: Reports: Hx Gastroesophageal Reflux Disease, Hx Hepatitis - History of hepatitis A. Musculoskeltal Medical History: Reports Hx Arthritis Psychiatric Medical History: Reports: Hx Bipolar Disorder, Hx Depression Infectious Medical History: Reports: Hx Hepatitis - History of hepatitis A. Past Surgical History: Reports: Hx Appendectomy, Hx Orthopedic Surgery - 21 operations L hand including orif 234fingers and amputation L 3rd finger., Hx Pacemaker, Hx Thyroid Surgery, Other - orif R femur,tibia Physical Exam - Extremities Notes: Patient is tender over right ankle and lower tibia. Mild edema noted.
--- NOTE | 2016-09-18 14:54 | ER Document Report ---
ED General - General Chief Complaint: Leg Injury Stated Complaint: RIGHT FOOT PAIN Time seen by provider: 14:51 Mode of Arrival: Ambulatory Information source: Patient Notes: This is a 66-year-old man with a history of atrial fibrillation (Xarelto), congestive heart failure, CVA, dyslipidemia, seizures, diabetes. The patient was at home today and he fell when getting out of his lazy boy recliner. Patient state that he felt like his right knee gave way. He states that this has happened before. He complains of right lateral ankle pain. Patient also states when he fell, he hit his right back and complains of right posterior thorax pain. TRAVEL OUTSIDE OF THE [place] IN LAST 30 DAYS: No - HPI Onset: Just prior to arrival Onset/Duration: Sudden Quality of pain: Dull Severity: Moderate Pain Level: 2 Associated symptoms: denies: Chills, Fever, Shortness of breath Exacerbated by: Movement Relieved by: Denies Similar symptoms previously: No Recently seen / treated by doctor: No - Related Data Allergies/Adverse Reactions: Penicillins Allergy (Intermediate, Verified 09/18/16 13:42) latex Allergy (Mild, Verified 09/18/16 13:42) procaine [From Novocain] Allergy (Verified 09/18/16 13:42) silicone Allergy (Verified 09/18/16 13:42) Past Medical History - General Information source: Patient - Social History Smoking Status: Never Smoker Cigarette use (# per day): No Chew tobacco use (# tins/day): No Frequency of alcohol use: None Drug Abuse: None Lives with: Spouse/Significant other Family History: CAD, DM, Hypertension Patient has suicidal ideation: No Patient has homicidal ideation: No - Past Medical History Cardiac Medical History: Reports: Hx Atrial Fibrillation, Hx Congestive Heart Failure - presumably from MR GEREMIAS since ejection and E/A were normal, Hx DVT, Hx Hypercholesterolemia, Hx Hypertension, Hx Peripheral Vascular Disease Denies: Hx Heart Attack, Hx Pulmonary Embolism Pulmonary Medical History: Reports: Hx Bronchitis, Hx Sleep Apnea Neurological Medical History: Denies: Hx Seizures Endocrine Medical History: Reports: Hx Diabetes Mellitus Type 2, Hx Hypothyroidism Renal/ Medical History: Denies: Hx Peritoneal Dialysis GI Medical History: Reports: Hx Gastroesophageal Reflux Disease, Hx Hepatitis - History of hepatitis A. Musculoskeltal Medical History: Reports Hx Arthritis Psychiatric Medical History: Reports: Hx Bipolar Disorder, Hx Depression Infectious Medical History: Reports: Hx Hepatitis - History of hepatitis A. Past Surgical History: Reports: Hx Appendectomy, Hx Orthopedic Surgery - 21 operations L hand including orif 234fingers and amputation L 3rd finger., Hx Pacemaker, Hx Thyroid Surgery, Other - orif R femur,tibia - Immunizations Hx Pneumococcal Vaccination: 02/23/16 Review of Systems - Review of Systems Notes: Review of systems: Constitutional: Denies fever, chills. EENT: Denies ear pain, sinus tenderness, throat pain, throat swelling. Cardiovascular: Denies chest pain, palpitations, dyspnea or edema. Respiratory: Denies wheezing, cough, hemoptysis. Abdomen: Denies abdominal pain, nausea, vomiting, diarrhea. Denies BRBPR or melena. Genitourinary: Denies dysuria, pyuria, hematuria, flank pain. Musculoskeletal: See H&P Neurologic: Denies headache, photophobia, neck stiffness, weakness. Denies loss of bowel or bladder function. Denies saddle anesthesia. Skin: Denies rash, lesions. Physical Exam - Vital signs Vitals: Temp Pulse Resp BP Pulse Ox 98.3 F 64 20 91/59 L 96 09/18/16 13:38 09/18/16 13:38 09/18/16 13:38 09/18/16 13:38 09/18/16 13:38 Notes: Physical exam: GENERAL: 66-year-old man, no acute distress, alert and oriented 3. HEAD: Atraumatic, normocephalic. EYES: Pupils equal round and reactive to light, extraocular movements intact, sclera anicteric, conjunctiva are normal. ENT: TMs normal, nares patent, oropharynx clear without exudates. Moist mucous membranes. NECK: Normal range of motion, supple without lymphadenopathy or JVD. LUNGS: Breath sounds clear to auscultation bilaterally and equal. No wheezes rales or rhonchi. HEART: Regular rate and rhythm without murmurs, rubs or gallops. Back: Patient does have right posterior thorax tenderness. There is no crepitus. He does have bilateral lung sounds. ABDOMEN: Soft, normoactive bowel sounds. No tenderness to palpation. No guarding, no rebound. No masses appreciated. EXTREMITIES: The patient's knee is nontender to range of motion. There is no significant effusion to the right knee joint. The tib-fib is nontender. Patient does have some tenderness just underneath the right lateral malleolus. He's got some swelling in that area. Distal cap refill and sensation is good. NEUROLOGICAL: Cranial nerves II through XII grossly intact. Normal speech, patient is able to ambulate with a cane. PSYCH: Normal mood, normal affect. SKIN: Warm, Dry, normal turgor, no rashes or lesions noted. Course - Re-evaluation Re-evalutation: 09/18/16 17:56 Note: I discussed case with Dr. Duarte who will be arranging home health tomorrow A splint has been placed. The patient absolutely refuses crutches. I have recommended that he use a knee walker scooter. I will refer him to orthopedics. Additionally, we will get him an ambulance ride home. He does have a son in town as well as a friend who is coming to his house tomorrow from out of town. 09/18/16 18:07 - Vital Signs Vital signs: Temp Pulse Resp BP Pulse Ox 98.3 F 64 20 91/59 L 96 09/18/16 13:38 09/18/16 13:38 09/18/16 13:38 09/18/16 13:38 09/18/16 13:38 - Diagnostic Test Radiology reviewed: Image reviewed, Reports reviewed - Spiral fracture through the distal fibula Discharge - Discharge Clinical Impression: distal right fibula fracture Condition: Stable Disposition: HOME, SELF-CARE Additional Instructions: As we discussed, I did notify Dr. Stokes will be arranging for home health tomorrow. In the meantime, continue your medicines (including the pain medicines). Elevate the leg. Ice with elevation. You should not be bearing weight on that leg. I recommend you get a knee walker scooter from the pharmacies (they were walking around them). You should follow-up with the orthopedic clinic: Call the clinic tomorrow morning and tell them the ER doctor wanted you this week because of an ankle fracture. Referrals: CORRY UDARTE MD [Primary Care Provider] - Follow up as needed JOSE DEAN MD [ACTIVE STAFF] - Follow up in 3-5 days
[2016-09-18] MEDS ORDERED: OXYCODONE-ACETAMINOPHEN 5-325 MG TABLET PO ONE (16:48)
[2016-09-18 18:47] VITALS: BP 115/57
== END 2016-09-18 18:43 | disposition home or self-care (01) ==
LOC: ER 12:45
DX: S82.401A Unspecified fracture of shaft of right fibula, initial encounter for closed fracture (principal); I50.9 Heart failure, unspecified; Z86.73 Personal history of transient ischemic attack (TIA), and cerebral infarction without residual deficits; E87.5 Hyperkalemia; R56.9 Unspecified convulsions; E11.9 Type 2 diabetes mellitus without complications; Z79.01 Long term (current) use of anticoagulants; W19.XXXA Unspecified fall, initial encounter
CPT/HCPCS: 99284; 73610; 73590; 71250; A9270

== ENCOUNTER 2016-11-03 08:43 | Emergency (ER) | payer MEDICARE, OTHER ==
[2016-11-03] MEDS ORDERED: FUROSEMIDE INJ/PF 20 MG/2 ML SDV IV ONE (08:58)
--- NOTE | 2016-11-03 09:00 | ER Document Report ---
ED Extremity Problem, Lower - General Chief Complaint: Leg Swelling Stated Complaint: WEAKNESS Time Seen by Provider: 11/03/16 08:51 Mode of Arrival: Ambulatory Information source: Patient Notes: Patient is a 66-year-old male who presents to the ER today for shortness of breath, swelling in the right lower extremity that began approximately 3 days ago. Patient states that his shortness of breath is accompanied by wheezing. He does have a history of CHF as well as COPD but has not been using his albuterol inhaler at home. He did have to use 2 L of oxygen last night which she states he does not usually do. He also slept in the rocking chair in the living room so that he can sit up as he states it made him breathe better. Patient states that 2 weeks ago his doctor took him off Lasix completely, he was taking 40 mg twice a day before being taken off. He denies any history of heart attack or stroke. He denies any chest pain with the symptoms. He states that his right leg usually swells more than his left. TRAVEL OUTSIDE OF THE [place] IN LAST 30 DAYS: No - Related Data Allergies/Adverse Reactions: Penicillins Allergy (Intermediate, Verified 11/03/16 08:46) latex Allergy (Mild, Verified 11/03/16 08:46) procaine [From Novocain] Allergy (Verified 11/03/16 08:46) silicone Allergy (Verified 11/03/16 08:46) Past Medical History - General Information source: Patient - Social History Smoking Status: Former Smoker Family History: CAD, DM, Hypertension Patient has suicidal ideation: No Patient has homicidal ideation: No - Past Medical History Cardiac Medical History: Reports: Hx Atrial Fibrillation, Hx Congestive Heart Failure - presumably from MR AR since ejection and E/A were normal, Hx DVT, Hx Hypercholesterolemia, Hx Hypertension, Hx Peripheral Vascular Disease Denies: Hx Heart Attack, Hx Pulmonary Embolism Pulmonary Medical History: Reports: Hx Bronchitis, Hx Sleep Apnea Neurological Medical History: Denies: Hx Seizures Endocrine Medical History: Reports: Hx Diabetes Mellitus Type 2, Hx Hypothyroidism Renal/ Medical History: Denies: Hx Peritoneal Dialysis GI Medical History: Reports: Hx Gastroesophageal Reflux Disease, Hx Hepatitis - History of hepatitis A. Musculoskeltal Medical History: Reports Hx Arthritis Psychiatric Medical History: Reports: Hx Bipolar Disorder, Hx Depression Infectious Medical History: Reports: Hx Hepatitis - History of hepatitis A. Past Surgical History: Reports: Hx Appendectomy, Hx Orthopedic Surgery - 21 operations L hand including orif 234fingers and amputation L 3rd finger., Hx Pacemaker, Hx Thyroid Surgery, Other - orif R femur,tibia - Immunizations Hx Pneumococcal Vaccination: 02/23/16 Review of Systems - Review of Systems Constitutional: No symptoms reported EENT: No symptoms reported Cardiovascular: See HPI Respiratory: See HPI Gastrointestinal: No symptoms reported Genitourinary: No symptoms reported Male Genitourinary: No symptoms reported Musculoskeletal: No symptoms reported Skin: See HPI Hematologic/Lymphatic: No symptoms reported Neurological/Psychological: No symptoms reported Physical Exam - Vital signs Vitals: Temp Pulse Resp BP Pulse Ox 98.4 F 76 18 124/63 98 11/03/16 08:47 11/03/16 08:47 11/03/16 08:47 11/03/16 08:47 11/03/16 08:47 - Notes Notes: PHYSICAL EXAMINATION: GENERAL: Chronically ill-appearing, but in no acute distress. HEAD: Atraumatic, normocephalic. EYES: Pupils equal round and reactive to light, extraocular movements intact, sclera anicteric, conjunctiva are normal. NECK: Normal range of motion, supple without lymphadenopathy LUNGS: Mild wheezing bilateral lung mcgill, no rales or rhonchi. HEART: Regular paced Rate and rhythm without murmurs ABDOMEN: Soft, no tenderness. No guarding, no rebound BACK: no vertebral tenderness, normal ROM GI/: no CVA tenderness EXTREMITIES: Normal range of motion, see skin below no cyanosis. NEUROLOGICAL: Cranial nerves grossly intact. Normal sensory/motor exams. PSYCH: Normal mood, normal affect. SKIN: Warm, Dry, normal turgor, 1+ pitting edema to the right lower extremity Course - Re-evaluation Re-evalutation: 11/03/16 13:22 Labwork today reveals a 3350 BNP, chest x-ray however is negative for any acute pathology, other lab work is unremarkable. Patient was given IV Lasix here and will go home with Lasix, following up with primary care provider in the next couple of days. - Vital Signs Vital signs: Temp Pulse Resp BP Pulse Ox 98.4 F 76 18 124/63 98 11/03/16 08:47 11/03/16 08:47 11/03/16 08:47 11/03/16 08:47 11/03/16 08:47 - Laboratory Result Diagrams: 11/03/16 09:23 11/03/16 09:23 Laboratory results interpreted by me: 11/03/16 11/03/16 11/03/16 09:23 09:23 09:23 RBC 3.45 L Hgb 10.3 L Hct 30.9 L RDW 14.1 H Glucose 124 H AST 16 L Creatine Kinase 25 L NT-Pro-B Natriuret Pep 3350 H Total Protein 5.9 L Albumin 3.4 L Discharge - Discharge Clinical Impression: Chronic diastolic CHF (congestive heart failure) Condition: Stable Disposition: HOME, SELF-CARE Additional Instructions: Return immediately for any new or worsening symptoms. Follow up with primary care provider, call tomorrow to make followup appointment. Prescriptions: Furosemide [Lasix 20 mg Tablet] 40 mg PO BID #30 tablet
[2016-11-03] MEDS ORDERED: IPRATROPIUM/ALBUTEROL 0.5-2.5 MG/3 ML AMPUL NEB ONE (09:27)
[2016-11-03 09:50] LABS: ABSOLUTE LYMPHOCYTES (AUTO) 1.5 10^3/uL (0.5-4.7); ABSOLUTE MONOCYTES (AUTO) 0.6 10^3/uL (0.1-1.4); ABSOLUTE NEUT (AUTO) 5.1 10^3/uL (1.7-8.2); BASOPHILS % (AUTO) 0.3 % (0-2); EOSINOPHILS % (AUTO) 0.5 % (0-6); HEMATOCRIT 30.9 % (37.9-51.0); HEMOGLOBIN 10.3 g/dL (13.5-17.0); LYMPHOCYTES % (AUTO) 20.8 % (13-45); MEAN CORPUSCULAR HEMOGLOBIN 29.8 pg (27.0-33.4); MEAN CORPUSCULAR HGB CONC 33.3 g/dL (32.0-36.0); MEAN CORPUSCULAR VOLUME 90 fl (80-97); MONOCYTES % (AUTO) 8.9 % (3-13); RED BLOOD COUNT 3.45 10^6/uL (4.35-5.55); RED CELL DISTRIBUTION WIDTH 14.1 % (11.5-14.0); SEGMENTED NEUTROPHILS % (AUTO) 69.5 % (42-78); WHITE BLOOD COUNT 7.3 10^3/uL (4.0-10.5)
[2016-11-03 10:09] LABS: ALANINE AMINOTRANSFERASE 36 U/L (21-72); ALBUMIN 3.4 g/dL (3.5-5.0); ALKALINE PHOSPHATASE 119 U/L (38-126); ANION GAP 10 (5-19); ASPARTATE AMINO TRANSFERASE 16 U/L (17-59); BILIRUBIN,DIRECT 0.2 mg/dL (0.0-0.4); BILIRUBIN,TOTAL 0.3 mg/dL (0.2-1.3); BLOOD UREA NITROGEN 14 mg/dL (7-20); CALCIUM 9.1 mg/dL (8.4-10.2); CARBON DIOXIDE 27 mmol/L (22-30); CHLORIDE 102 mmol/L (98-107); CREATINE KINASE 25 U/L (55-170); GLUCOSE 124 mg/dL (75-110); POTASSIUM 4.5 mmol/L (3.6-5.0); SODIUM 138.5 mmol/L (137-145); TOTAL PROTEIN 5.9 g/dL (6.3-8.2)
[2016-11-03 10:19] LABS: CREATINE KINASE MB 0.51 ng/mL (<4.55)
[2016-11-03 10:20] LABS: TROPONIN I < 0.012 ng/mL
[2016-11-03] MEDS ORDERED: FAMOTIDINE 20 MG TABLET PO ONE (10:43)
[2016-11-03 10:45] LABS: APPEARANCE,URINE CLEAR; BILIRUBIN,URINE NEGATIVE (NEGATIVE); GLUCOSE, URINE NEGATIVE (NEGATIVE); KETONES,URINE NEGATIVE (NEGATIVE); LEUKOCYTE ESTERASE,URINE NEGATIVE (NEGATIVE); NITRITE,URINE NEGATIVE (NEGATIVE); PROTEIN,URINE NEGATIVE (NEGATIVE); URINE SPECIFIC GRAVITY 1.005; UROBILINOGEN,URINE NEGATIVE mg/dL (<2.0)
--- NOTE | 2016-11-03 13:13 | EKG REPORT ---
SEVERITY:- ABNORMAL ECG - ATRIAL Flutter PAIRED VENTRICULAR PREMATURE COMPLEXES NONSPECIFIC INTRAVENTRICULAR CONDUCTION DELAY : Confirmed by: Angel Henson 03-Nov-2016 13:12:22
[2016-11-03] MEDS ORDERED: ALBUTEROL SULFATE HFA (90 MCG/PUFF) 8 GM MDI (1 MDI/ER DISP) IH PRN (13:29)
[2016-11-03 17:18] VITALS: BP 111/51
== END 2016-11-03 13:58 | disposition home or self-care (01) ==
LOC: ER 08:43
DX: I50.32 Chronic diastolic (congestive) heart failure (principal); M79.89 Other specified soft tissue disorders; R53.1 Weakness; R06.02 Shortness of breath
CPT/HCPCS: 93005; 94640; 99284; 96374; 36415; 82553; 82550; 85025; 80053; 81001; 84484; 83880; 71020; 93010; A9270 ×2; J1940; J3490; J7620

== ENCOUNTER 2016-11-28 10:15 | Emergency (ER) | payer MEDICARE, OTHER ==
[2016-11-28] MEDS ORDERED: FUROSEMIDE 40 MG TABLET PO ONE ×2 (10:22→10:28)
--- NOTE | 2016-11-28 10:24 | ER Document Report ---
ED Extremity Problem, Lower - General Chief Complaint: Edema Stated Complaint: SWELLING IN LEGS AND ARMS Time Seen by Provider: 11/28/16 10:22 Notes: Patient is a 66-year-old male, past medical history CHF, COPD, hypertension, chronic RLE DVT (on life-long anticoagulation), presents with 3 days of increased bilateral leg swelling after his cat knocked his Lasix over he was unable to find the pills. He will have a refill of his Lasix tomorrow. He takes 40 mg at 8 am and then 40 mg at noon every day. When he misses his Lasix doses, his right leg always swells more than his left leg. Patient denies shortness of breath, fevers, rash, leg pain, chest pain, nausea, vomiting to difficulty walking. TRAVEL OUTSIDE OF THE [place] IN LAST 30 DAYS: No - Related Data Allergies/Adverse Reactions: Penicillins Allergy (Intermediate, Verified 11/03/16 08:46) latex Allergy (Mild, Verified 11/03/16 08:46) procaine [From Novocain] Allergy (Verified 11/03/16 08:46) silicone Allergy (Verified 11/03/16 08:46) Past Medical History - General Information source: Patient - Social History Smoking Status: Former Smoker Family History: CAD, DM, Hypertension - Past Medical History Cardiac Medical History: Reports: Hx Atrial Fibrillation, Hx Congestive Heart Failure - presumably from MR AR since ejection and E/A were normal, Hx DVT, Hx Hypercholesterolemia, Hx Hypertension, Hx Peripheral Vascular Disease Denies: Hx Heart Attack, Hx Pulmonary Embolism Pulmonary Medical History: Reports: Hx Bronchitis, Hx Sleep Apnea Neurological Medical History: Denies: Hx Seizures Endocrine Medical History: Reports: Hx Diabetes Mellitus Type 2, Hx Hypothyroidism Renal/ Medical History: Denies: Hx Peritoneal Dialysis GI Medical History: Reports: Hx Gastroesophageal Reflux Disease, Hx Hepatitis - History of hepatitis A. Musculoskeltal Medical History: Reports Hx Arthritis Psychiatric Medical History: Reports: Hx Bipolar Disorder, Hx Depression Infectious Medical History: Reports: Hx Hepatitis - History of hepatitis A. Past Surgical History: Reports: Hx Appendectomy, Hx Orthopedic Surgery - 21 operations L hand including orif 234fingers and amputation L 3rd finger., Hx Pacemaker, Hx Thyroid Surgery, Other - orif R femur,tibia - Immunizations Hx Pneumococcal Vaccination: 02/23/16 Review of Systems - Review of Systems Notes: REVIEW OF SYSTEMS: CONSTITUTIONAL: -fevers, -chills EENT: -eye pain, -difficulty swallowing, -nasal congestion CARDIOVASCULAR:-chest pain, -syncope. RESPIRATORY: -cough, -SOB GASTROINTESTINAL: -abdominal pain, - nausea, -vomiting, -diarrhea GENITOURINARY: -dysuria, -hematuria MUSCULOSKELETAL: +peripheral edema, -back pain, -neck pain SKIN: -rash or skin lesions. HEMATOLOGIC: -easy bruising or bleeding. LYMPHATIC: -swollen, enlarged glands. NEUROLOGICAL: -altered mental status or loss of consciousness, -headache, - neurologic symptoms PSYCHIATRIC: -anxiety, -depression. ALL OTHER SYSTEMS REVIEWED AND NEGATIVE. Physical Exam - Notes Notes: PHYSICAL EXAMINATION: GENERAL: Well-appearing, well-nourished and in no acute distress. HEAD: Atraumatic, normocephalic. EYES: Pupils equal round and reactive to light, extraocular movements intact, sclera anicteric, conjunctiva are normal. ENT: nares patent, oropharynx clear without exudates. Moist mucous membranes. NECK: Normal range of motion, supple without lymphadenopathy LUNGS: Breath sounds clear to auscultation bilaterally and equal. No wheezes rales or rhonchi. HEART: Regular rate and rhythm. ABDOMEN: Soft, nontender, normoactive bowel sounds. No guarding, no rebound. No masses appreciated. EXTREMITIES: 2+ pitting edema in RLE, 1+ pitting edema in LLE, RUE and LUE; strong distal pulses NEUROLOGICAL: Cranial nerves grossly intact. Normal speech, normal gait. Normal sensory and motor exams. PSYCH: Normal mood, normal affect. SKIN: Warm, Dry, normal turgor, no rashes or lesions noted. Course - Re-evaluation Re-evalutation: Patient in no respiratory distress and his lungs are clear. Patient with peripheral edema from missing his Lasix doses. Will provide him with his morning doses and he is receiving a refill tomorrow morning. Given strict return precautions and he understands. Discharge - Discharge Clinical Impression: Peripheral edema Condition: Stable Disposition: HOME, SELF-CARE Additional Instructions: Take your Lasix dose as directed. Follow-up with your primary care physician. Edema, Peripheral You have swelling in your legs. This is called peripheral edema. It can be caused by "leaky capillaries," inflammation, disease of the leg veins, or excess salt and water in your body. Edema may be a sign of heart, kidney, or liver disease. A medical evaluation can determine if there is a serious underlying cause for your edema. Avoid prolonged standing. If you must sit for a long time, occasionally get up and walk around or elevate your legs. Support stockings can be helpful in limiting swelling. Often diuretic or water pills are used to remove excess salt and water from your body. Call the doctor or return if you develop increased swelling, pain, or redness, shortness of breath, chest pain, or any other significant change.
[2016-11-28 10:33] VITALS: BP 117/53
[2016-11-28 10:59] LABS: ANION GAP 7 (5-19); BLOOD UREA NITROGEN 19 mg/dL (7-20); CALCIUM 9.5 mg/dL (8.4-10.2); CARBON DIOXIDE 27 mmol/L (22-30); CHLORIDE 106 mmol/L (98-107); CREATININE RESULT 0.88 mg/dL (0.52-1.25); GLUCOSE 151 mg/dL (75-110); POTASSIUM 4.8 mmol/L (3.6-5.0); SODIUM 140.3 mmol/L (137-145)
== END 2016-11-28 11:21 | disposition home or self-care (01) ==
LOC: ER 10:15
DX: I11.0 Hypertensive heart disease with heart failure (principal); I50.9 Heart failure, unspecified; R60.0 Localized edema; T50.1X6A Underdosing of loop [high-ceiling] diuretics, initial encounter; Z91.138 Patient's unintentional underdosing of medication regimen for other reason; Z91.14 Patient's other noncompliance with medication regimen; I48.91 Unspecified atrial fibrillation; I82.501 Chronic embolism and thrombosis of unspecified deep veins of right lower extremity; Z79.01 Long term (current) use of anticoagulants; E11.9 Type 2 diabetes mellitus without complications; J44.9 Chronic obstructive pulmonary disease, unspecified; Z88.0 Allergy status to penicillin; Z91.040 Latex allergy status; Z88.4 Allergy status to anesthetic agent; Z88.8 Allergy status to other drugs, medicaments and biological substances; Z87.891 Personal history of nicotine dependence; Z95.0 Presence of cardiac pacemaker
CPT/HCPCS: 99283; 36415; 80048; A9270